=== PATIENT | female | born 1975 | race Two or more races ===

== ENCOUNTER 2025-02-03 13:50 | Emergency (ER) | payer MEDICAID, SELFPAY ==
[2025-02-03 14:09] VITALS: BP 207/134; BP 209/125; PULSE 71; RESP 18; TEMP 36.7; O2SAT 97; BMI 25.0
--- NOTE | 2025-02-03 14:14 | PD.EDRME ---
Rapid Medical Screening Exam RME Arrival date/time: 02/03/25 13:50 Chief Complaint: Nausea/Vomiting/Diarrhea Time Seen by Provider: 02/03/25 19:52 Vital signs: Vital Signs Temperature 98.1 F 02/03/25 14:09 Pulse Rate 71 02/03/25 14:09 Respiratory Rate 18 02/03/25 14:09 Blood Pressure 207/134 H 02/03/25 14:09 Pulse Oximetry (%) 97 02/03/25 14:09 Oxygen Delivery Method Room Air 02/03/25 14:09 Vital signs reviewed by provider: Yes RME Narrative: 49-year-old female presents to the emergency department with a complaint of tingling to her feet dizziness and blurred vision that began this afternoon. Denies chest pain. Denies of ortiz headache.
--- NOTE | 2025-02-03 14:16 | XR_ITS ---
Examination: CT brain head without contrast. 2-D sagittal coronal reconstructions Date and time of exam:February 03, 2025 1440 hours INDICATIONS: Syncopal episode today followed by headache and dizziness CTDI: vol (mGy):51.5 DLP: (mGycm):1042 Technique: Multiple CT axial sections of the brain have been obtained, 5 mm slice thickness. Contrast has not been administered. 2-D sagittal, coronal reconstructions have been obtained Low dose protocols were performed. One or more of the following dose reduction techniques were used; automated exposure control, adjustment of the mA and/or KV according to patient size, use of iterative reconstruction technique. Findings: No significant ventricular enlargement. Intra-axial or extra-axial hemorrhage density is not seen. No mass effect or midline shift Basal cisterns are not remarkable. Fourth ventricle is midline. Cranial vault intact. Impression: Negative for acute hemorrhage, mass effect or midline shift
--- NOTE | 2025-02-03 14:17 | EKG_ITS ---
[facility] Test Date: 2025-02-03 Pat Name: MARVIN DEVINE Department: Room: - Gender: Female [employer]: : 1975 Requested By: Ventura Hernandez Order Number: [id number] Reading MD: Ventura Hernandez Measurements Intervals [place] Rate: 67 P: 51 [place]: 160 QRS: 2 QRSD: 97 T: 112 QT: 337 QTc: 357 Interpretive Statements SINUS RHYTHM MINIMAL VOLTAGE CRITERIA FOR LVH, CONSIDER NORMAL VARIANT [MEETS CRITERIA IN ONE OF: R(aVL), S(V1), R(V5), R(V5/V6)+S(V1)] NONSPECIFIC T-WAVE ABNORMALITY Compared to ECG 12/26/2017 13:42:24 T-wave abnormality now present /store/S0/[id number]/[id number].pdf
--- NOTE | 2025-02-03 14:17 | XR_ITS ---
Examination: PA lateral chest 2 views TECHNIQUE: Upright PA lateral chest 2 views Date and time: February 03, 2025 1455 hours INDICATIONS: High blood pressure dizziness blurred vision nausea vomiting today. FINDINGS: Normal heart size No aspiration pneumonia. The osseous structures are intact IMPRESSION: No active disease
[2025-02-03 14:40] VITALS: BP 207/134; PULSE 71
[2025-02-03] MEDS: cloNIDine HCL 0.1 MG TABLET 0.2 MG PO (14:40)
[2025-02-03 14:46] LABS: Basophils # (Auto) 0.1 Thou/mm3 (0.0-0.2); Basophils % (Auto) 1 % (0-2.5); Eosinophils # (Auto) 0.3 Thou/mm3 (0.0-0.5); Eosinophils % (Auto) 2 % (0-10); Hematocrit 38.5 % (36.0-46.0); Hemoglobin 14.1 g/dL (12.0-16.0); Immature Granulocytes % (Auto) 0 % (0-0); Immature Granulocytes Auto 0.06 Thou/mm3 (0.00-0.00); Lymphocytes # (Auto) 4.3 Thou/mm3 (1.0-4.8); Lymphocytes % (Auto) 28 % (10-50); Mean Corpuscular HGB Conc 36.6 g/dl (31.0-37.0); Mean Corpuscular Hemoglobin 31.1 pg (25.0-35.0); Mean Corpuscular Volume 85 fL (80-100); Monocytes # (Auto) 1.1 Thou/mm3 (0.0-0.8); Monocytes % (Auto) 7 % (0-12); Neutrophils # (Auto) 9.4 Thou/mm3 (1.8-7.7); Neutrophils % (Auto) 62 % (37-80); Nucleated Red Blood Cell % 0 /100 WBC (0); Platelet Count 252 Thou/mm3 (140-440); Red Blood Count 4.54 Miln/mm3 (4.00-5.20); White Blood Count 15.2 Thou/mm3 (3.6-11.0)
[2025-02-03 15:04] LABS: B-Type Natriuretic Peptide 38 pg/mL (0-100)
[2025-02-03 15:06] LABS: Alanine Aminotransferase 32 U/L (10-49); Albumin, Serum 4.4 gm/dL (3.5-5.0); Albumin/Globulin Ratio 1.4 (1.2-2.2); Alkaline Phosphatase 155 U/L (46-116); Anion Gap 9 (7-16); Aspartate Amino Transferase 36 U/L (0-34); BUN/Creatinine Ratio 10 Ratio (12-20); Bilirubin,Total 0.7 mg/dL (0.3-1.2); Blood Urea Nitrogen 9 mg/dL (9-23); Calcium 9.5 mg/dL (8.3-10.6); Calcium (Corrected) 9.5 mg/dL (8.5-10.1); Carbon Dioxide 26.8 mMol/L (20.0-31.0); Chloride 103 mMol/L (98-107); Creatinine (Component) 0.9 mg/dL (0.6-1.3); Estimated Creatinine Clearance 70.8 mL/min (>60); Globulin 3.2 gm/dL (2.3-3.5); Glucose 286 mg/dL (74-106); Magnesium 1.9 mg/dL (1.6-2.6); Osmolality,Calculated 286 (275-295); Sodium 139 mMol/L (136-145); Total Protein 7.6 gm/dL (5.7-8.2); Troponin I < 0.020 ng/mL (0.0-0.045); eGFR > 60 See Note
[2025-02-03 15:13] LABS: Partial Thromboplastin Time 26.2 Seconds (22.0-36.0); Prothrombin Time 10.5 Seconds (9.0-12.2)
[2025-02-03 19:56] VITALS: BP 148/95; PULSE 57; RESP 17; TEMP 36.4; O2SAT 99
--- NOTE | 2025-02-03 19:57 | EDNOTE_ITS ---
ED Dizzyness RME/HPI General Chief Complaint: Nausea/Vomiting/Diarrhea Stated Complaint: HTN, blurry vision X 2 days, vomiting Time Seen by Provider: 02/03/25 19:52 Arrival date/time: 02/03/25 13:50 RME / HPI RME / HPI Narrative: 49-year-old female presents to the emergency department with a complaint of tingling to her feet dizziness and blurred vision that began this afternoon. Denies chest pain. Denies of ortiz headache. DR HERNANDEZ MAIN ED EVALUATION: 49 y/o female with Hx of HTN and Migraines presents to ED c/o lightheadedness, dizziness, nausea and 1 episode of vomiting x just [employer]. Patient was in the shower when she suddenly felt like her head was going to explode, then she became extremely nauseated causing her to vomit in the shower. She believes she may have vomited her medication. Patient is on Losartan and Amlodipine, new medication prescribed by her new PCP. Patient denies fever or any other associated symptoms or aggravating factors. No modifying factors, no radiation, no migration. No pain reported overall. No other concerns or complaints expressed at this time. Related Data Home Medications ?Medication ?Instructions ?Recorded ?Confirmed metoprolol tartrate 50 mg tablet 100 mg PO BID 1 10/18/20 Previous Rx's ?Medication ?Instructions ?Recorded ondansetron HCl 4 mg tablet 4 mg PO Q8H PRN nausea and 10/18/20 (Zofran) vomiting #7 tabs cyclobenzaprine 10 mg tablet 10 mg PO TID PRN muscle s pasm #30 12/04/20 tabs ibuprofen 800 mg tablet 800 mg PO TID PRN pain #30 t abs 12/04/20 tramadol 50 mg tablet 50 mg PO BID PRN pain #7 tab s 12/04/20 Allergies Allergy/AdvReac Type Severity Reaction Status Date / Time No Known Allergies Allergy Verified 02/03/25 13:54 Review of Systems Review of Systems Systems Reviewed: All systems reviewed, normal except as documented Past Medical History Past Medical History NEUROLOGIC: Positive Neurological Disorders and Migraine CARDIAC: Positive Cardiac Disorders and Hypertension REPRODUCTIVE: Positive Previous Pregnancies MUSCULOSKELETAL: Positive Musculoskeletal Disorders and Arthritis OTHER HISTORY: Positive Chicken Pox Family History FAMILY HISTORY: Positive Family Cardiac Disorders and Family Surgery Surgical History SURGICAL: Positive Arthroscopy and Tubal Ligation ED Exam Narrative Physical exam: GENERAL APPEARANCE: alert and oriented x 4, well-developed, well-nourished, no acute distress VITALS: All vitals were reviewed and the pulse ox is 99% on room air, which is normal according to my interpretation. HEENT: Normocephalic, atraumatic; pupils equal, round, reactive to light; EOMI; mucous membranes pink, moist; oropharynx clear NECK: Supple LUNGS: CTABL; no wheezes, no rales, no rhonchi HEART: Regular rate, regular rhythm; normal S1, S2; no murmurs ABDOMEN: non distended; normal BS; soft, no tenderness, no guarding, no rebound; no masses, no organomegaly, no hernia BACK: no CVA tenderness EXTREMITIES: atraumatic; no edema NEUROLOGIC: awake; alert and oriented x4; cranial nerves II-XII grossly intact; no focal sensory or motor deficits PSYCHIATRIC: appropriate mood and affect SKIN: warm, dry, normal color; no rashes Course Course Course Narrative: CXR is ordered for determining the etiology of shortness of breath. Quality Measures none Orders Category Date Time Status EKG (ED ONLY) *Do not use* NOW Care 02/03/25 14:[address] head/brain wo con Stat Exams 02/03/25 14:16 Completed EKG (ED Only) Stat Exams 02/03/25 14:17 Draft XR chest 2V Stat Exams 02/03/25 14:17 Completed B-Type Natriuretic Peptide Stat Lab 02/03/25 14:32 Completed CBC Stat Lab 02/03/25 14:32 Completed Comprehensive Metabolic Panel Stat Lab 02/03/25 14:32 Completed Magnesium Stat Lab 02/03/25 14:32 Completed Partial Thromboplastin Time Stat Lab 02/03/25 14:32 Completed Prothrombin Time with INR Stat Lab 02/03/25 14:32 Completed Troponin I Stat Lab 02/03/25 14:32 Completed cloNIDine HCL [Catapres] Med 02/03/25 14:16 Discontinued 0.2 mg PO X1 ONE Vital Signs Vital signs: Vital Signs Temperature 98.1 F 02/03/25 14:09 Pulse Rate 71 02/03/25 14:09 Respiratory Rate 18 02/03/25 14:09 Blood Pressure 207/134 H 02/03/25 14:09 Pulse Oximetry (%) 97 02/03/25 14:09 Oxygen Delivery Method Room Air 02/03/25 14:09 Dizziness MDM Narrative MDM Narrative:: Scribe Attestation: I, Sarah Pak, am scribing for and in the presence of Dr. Hernandez. Provider Notation: Although this document has been carefully reviewed, there may still be some phonetic and other typographical errors.? These errors are purely grammatical due to imperfections in the software program and should not be construed in any way to? compromise the substance of the patient's medical care during this visit. Patient data External records reviewed:: [facility] previous records (No recent ED records available for review. ) Clinical information provided by:: patient Social determinants that could affect healthcare access:: none Patient has the following chronic illnesses:: Migraine, Hypertension, Arthritis How is presenting disease/condition affected by chronic disease/condition?: exacerbated by Evaluation data The following diagnostics were reviewed and interpreted by me:: lab results, radiology exam(s) and EKG tracing(s) (EKG manual reading, my interpretation: sinus rhythm, rate: 67 bpm, no ST elevation, no acute ischemic changes, interpreted as normal.) Lab and/or radiology exams considered but not ordered:: None Interpretation Summary: RADIOLOGY Head CT: Patient: MARVIN DEVINE Record#: [id number] Birthdate: 1975 Age/Sex: 49 / F Location: [facility] Attending Dr: Ordering Physician: Ventura Jeffery PA-C Date of Service: 02/03/25 Procedure(s): CT head/brain wo con Accession Number(s): [id number] cc: Molly Lazaro; Andrew Boyce MD; Ventura Jeffery PA-C~ Examination: CT brain head without contrast. 2-D sagittal coronal reconstructions Date and time of exam:February 03, 2025 1440 hours INDICATIONS: Syncopal episode today followed by headache and dizziness CTDI: vol (mGy):51.5 DLP: (mGycm):1042 Technique: Multiple CT axial sections of the brain have been obtained, 5 mm slice thickness. Contrast has not been administered. 2-D sagittal, coronal reconstructions have been obtained Low dose protocols were performed. One or more of the following dose reduction techniques were used; automated exposure control, adjustment of the mA and/or KV according to patient size, use of iterative reconstruction technique. Findings: No significant ventricular enlargement. Intra-axial or extra-axial hemorrhage density is not seen. No mass effect or midline shift Basal cisterns are not remarkable. Fourth ventricle is midline. Cranial vault intact. Impression: Negative for acute hemorrhage, mass effect or midline shift Dictated By: Andrew Boyce MD Signed By: <Electronically signed by Andrew Boyce MD in OV> 02/03/25 1514 Chest X-Ray: Patient: MARVIN DEVINE Record#: [id number] Birthdate: 1975 Age/Sex: 49 / F Location: [facility] Attending Dr: Ordering Physician: Ventura Jeffery PA-C Date of Service: 02/03/25 Procedure(s): XR chest 2V Accession Number(s): [id number] cc: Molly Lazaro; Andrew Boyce MD; Ventura Jeffery PA-C~ Examination: PA lateral chest 2 views TECHNIQUE: Upright PA lateral chest 2 views Date and time: February 03, 2025 1455 hours INDICATIONS: High blood pressure dizziness blurred vision nausea vomiting today. FINDINGS: Normal heart size No aspiration pneumonia. The osseous structures are intact IMPRESSION: No active disease Dictated By: Andrew Boyce MD Signed By: <Electronically signed by Andrew Boyce MD in OV> 02/03/25 1511 Medications / Prescriptions Medications or Prescriptions considered but not ordered:: None Medication administrations:: Medication Administration History Discontinued Medications Clonidine (Clonidine Hcl 0.1 Mg Tablet) 0.2 mg PO X1 ONE Stop: 02/03/25 14:17 Last Admin: 02/03/25 14:40 Dose: 0.2 mg Documented By: See above Consultations Consultation(s) initiated? (list below): No Diagnosis Dizziness Differential Diagnosis: adverse reaction to drug, benign paroxysmal positional vertigo, orthostatic hypotension, vertebral basilar insufficiency, cerebrovascular accident, acute vestibular neuronitis, transient cerebral ischemia and other (Hypertensive emergency) Most likely diagnosis given after review of the tests above:: Hypertensive urgency Admission Indicated Admission indicated?: not indicated Explain why admission is indicated or not indicated:: Patient does not meet admission criteria. Admission Request Was there a request for admission?: No Disposition Plan Disposition Plan: Discharge Discharge Attestation Discharge Attestation: The patient and all family members were given an opportunity to ask questions and understood the discharge instructions. Discharge instructions specifically effects, indications for sooner follow up or return to the emergency department, and the expected course of current diagnosis. Patient condition: Stable Discharge Plan Plan Patient Disposition: HOME (Self Care) Prescriptions/Referrals Prescriptions/Med Rec: No Action metoprolol tartrate 50 mg tablet 100 mg PO BID ondansetron HCl [Zofran] 4 mg tablet 4 mg PO Q8H PRN (Reason: nausea and vomiting) Qty: 7 0RF cyclobenzaprine 10 mg tablet 10 mg PO TID PRN (Reason: muscle spasm) Qty: 30 0RF ibuprofen 800 mg tablet 800 mg PO TID PRN (Reason: pain) Qty: 30 0RF tramadol 50 mg tablet 50 mg PO BID PRN (Reason: pain) Qty: 7 0RF Referrals: Molly Lazaro PA-C [Primary Care Provider] - In 1 week Problem List Clinical Impression: Hypertensive urgency Patient/Caregiver Discharge Instructions Education Materials: ED High Blood Pressure ... Print Language: Occitan Stand Alone Forms: [facility] Award Info., Patient Portal Info Letter
== END 2025-02-03 20:27 | disposition home or self-care (01) ==
PROVIDERS: Physician Assistant; Emergency Provider Emergency Medicine; PCP Physician Assistant
DX: I16.0 Hypertensive urgency (principal); I10 Essential (primary) hypertension; R55 Syncope and collapse; R51.9 Headache, unspecified; R42 Dizziness and giddiness; R94.31 Abnormal electrocardiogram [ECG] [EKG]
CPT/HCPCS: 36415; 70450; 71046; 80053; 83735; 83880; 84484; 85025; 85610; 85730; 93005; 99284; A9270